=== PATIENT | female | born 1950 | race Caucasian/White ===

== ENCOUNTER 2019-10-17 18:53 | Emergency (ER) | payer MEDICARE, BC, SELFPAY ==
[2019-10-17] VITALS (8 sets, daily range): BP systolic 120–190; BP diastolic 46–100; PULSE 62–78; RESP 13–94; TEMP 37.1; O2SAT 17–98; BMI 33.6
--- NOTE | 2019-10-17 19:06 | ED.VIS.GEN ---
History of Present Illness Chief Complaint: Fall Informant: Patient, Family Onset: Hours Context: Sudden Onset Timing: Continuous Quality: Throbbing aching Location: Right elbow Current Severity: Mild Maximum Severity: Moderate Worsened by: Attempt to use right upper extremity Relieved by: Nothing Associated Symptoms: Loss of function no paresthesia, anesthesia or motor weakness Narrative: Patient is a 69-year-old woman who was carrying 2 bags of food. She fell. She landed on her right upper extremity. She presents with immobilization device placed by outside facility/squad. She denies paresthesia, anesthesia motors. Denies head trauma. Denies neck pain. Denies cardiac respiratory symptoms. She has no other complaints. She is right-hand dominant. Prior similar symptoms: No Recent Illness/Hospitalization: No Past Medical History - Allergies and Home Meds Allergies/Adverse Reactions: Allergies Penicillins Allergy (Verified 10/17/19 18:55) [place] Primary Care Physician: [facility] Doctor,Out of [NON-STAFF] - Doctor,Your [STAFF PHYSICIAN] - As soon as possible Surgical History: noncontributory Lives: With Family Smoking Status: Current every day smoker Alcohol: Rare Drugs: None Review of Systems General: Denies: Malaise, Sweats Eyes: Denies: Visual changes - bilaterally, Blurred Vision - bilaterally ENT: Reports: - - Denies ringing in ears, decreased hearing or ear pain. Cardiovascular: Denies: Chest pain, Palpitations Respiratory: Denies: Dyspnea Gastrointestinal: Denies: Abdominal pain, Nausea, Vomiting Musculoskeletal: Reports: Swelling, Extremity Pain. Denies: Myalgias, Arthralgias, Neck pain, Back pain, -, - Skin: Denies: Rash, Wounds Neurological: Denies: Headache, Weakness, Parasthesia, Numbness Hematologic: Denies: Easy bruising, Easy bleeding Physical Exam Vital Signs/Narrative: Vital Signs Temp Pulse Resp BP Pulse Ox 10/17/19 18:56 98.8 F 78 17 190/100 H 97 Inital Vital Signs reviewed: Yes General: Well nourished, Well developed, No Acute Distress Head: Normocephalic, Atraumatic, - - No clinical findings of basilar skull fracture. Eyes: Perrl, EOMI. Negative for: Pale conjunctiva, Scleral icterus ENT: Moist mucous membranes, No rhinorrhea, TM's clear, - - No evidence of facial trauma. Negative for: Dry mucous membranes, Nasal congestion, Sinus tenderness Neck: Supple, Nontender Cardiovascular: Regular rate, Regular rhythm, No murmurs, Normal S1, Normal S2 Respiratory: No distress, CTA bilaterally, Chest nontender Abdomen: Soft, Nontender, Nondistended, Normal bowel sounds Back: Nontender, Normal Inspection Extremities: No edema, Tenderness, - - Deformity to right elbow. Median, radial, and ulnar nerve function intact. There is no pain the patient of the phalanges, carpal bones, metacarpal bones or distal radius or ulna. There is no pain the patient of the proximal humerus, clavicle or AC joint. Skin: Normal color, No rash Neurological: Alert, Oriented x3, Cranial nerves II-XII grossly intact, Normal Strength, Normal Sensation Psychological: Normal affect, Normal Mood Diagnostic/Tx/Re-eval 10/17/19 19:04 Elbow min 3 Views [RAD] Stat 3 view x-ray of the right elbow was obtained and patient has a posterior medial dislocation. No fracture is noted. Patient was consented for deep sedation using propofol. She was explained risk benefits. She was given opportunity ask questions. None were asked. 2 view post reduction film was obtained. Lateral is suboptimal. There may be a fracture of the radial head which is nondisplaced. There is an avulsion fracture which is displaced of the coronoid process. - Medical Decision Making Patient has no contraindication to propofol. She denies allergy to soy products or egg products. She did eat at 530. She was informed that there is deformity to her elbow. This may represent a dislocation or fracture dislocation. X-rays will be obtained and will determine best treatment option and referral. Procedures - Upper Extremity Splints Upper Extremity Splint: Plaster, Long arm Splint Fabrication: Fabricated Location: Right Procedure(s): 1. deep sedation using propofol. 2. Closed reduction posterior right elbow dislocation. Patient was informed of procedure and risk benefits. He given opportunity ask questions. Timeout was called. Consents were signed. Patient received a total of 80 mg of propofol. The propofol was administered by fl. Start time 1938 end time 1947. Once patient was sedated the dislocation was reduced by me easily. With minimal supination pronation the elbow redislocated. The patient was placed in flexed position at 90 degrees and supinated. A long-arm posterior plaster splint was applied by me. This was fabricated by me. Patient tolerated procedure well. Postreduction film was ordered. ED Disposition - Plan for ED Patient: Disposition: Home or Assisted Living Diagnosis: Closed traumatic posterior dislocation of right elbow joint, Closed fracture of coronoid process of right ulna Instructions: ED DISLOCATED ELBOW Prescriptions: Oxycodone HCl/Acetaminophen [Percocet 5/325] 1 tab PO Q6H PRN PRN 5 Days #20 tab PRN Reason: Elbow pain Prescription Printed Referrals: [facility] Doctor,Out of [NON-STAFF] - Doctor,Your [STAFF PHYSICIAN] - As soon as possible Additional Instructions: 1. Keep splint absolutely clean and dry 2. Elevate elbow above nose as much as possible 3. Apply ice 20 to 30 minutes per application 6-8 times a day 4. Contact your physician for orthopedic referral tomorrow.
[2019-10-17] MEDS: Morphine 4 MG/ML Syringe IV (19:17)
--- NOTE | 2019-10-17 19:27 | RAD_ITS ---
STUDY: X-RAY - RIGHT ELBOW REASON FOR EXAM: Female, 69 years old. Trauma TECHNIQUE: 3 view(s) of the elbow. COMPARISON: None. FINDINGS: Elbow joint is dislocated posteriorly. There is no displaced fracture. RAD/Elbow min 3 Views IMPRESSION: Elbow dislocation. Electronically Signed: Shira Sauceda, at 19:51 EDT Tel , Service support ,
[2019-10-17] MEDS: Propofol 200 MG/20 ML Vial IV BOLUS (19:48)
--- NOTE | 2019-10-17 19:57 | RAD_ITS ---
STUDY: X-RAY - RIGHT ELBOW REASON FOR EXAM: Female, 69 years old. Post reduction TECHNIQUE: 2 view(s) of the elbow. COMPARISON: None. FINDINGS: The elbow has been relocated. The elbow is in a splint. Visualization of osseous details is difficult. There is likely radial head fracture. There are small fragments adjacent to the ulna. RAD/Elbow 2 Views IMPRESSION: Relocation of the elbow joint. Underlying difficult to visualize fractures of the radius and ulna. Electronically Signed: Shira Sauceda, at 20:20 EDT Tel , Service support ,
== END 2019-10-17 20:32 | disposition home or self-care (01) ==
PROVIDERS: Emergency Provider Emergency Medicine
DX: S53.124A Posterior dislocation of right ulnohumeral joint, initial encounter (principal); S52.041A Displaced fracture of coronoid process of right ulna, initial encounter for closed fracture; F17.200 Nicotine dependence, unspecified, uncomplicated; W19.XXXA Unspecified fall, initial encounter
CPT/HCPCS: 29105; 73070; 73080; 96374; 99285; J7030; A4216